=== PATIENT | male | born 1960 | race Caucasian/White ===

== ENCOUNTER 2017-04-14 15:23 | Emergency (ER) | payer OTHER ==
[~2017-04-14] VITALS: Ht 166.4 cm; Wt 80.8 kg
[2017-04-14 15:55] VITALS: BP 149/78
== END 2017-04-14 16:55 | disposition home or self-care (01) ==
LOC: ER 15:24
DX: J11.1 Influenza due to unidentified influenza virus with other respiratory manifestations (principal); Z88.6 Allergy status to analgesic agent
CPT/HCPCS: 71020; 99284

== ENCOUNTER 2023-05-28 09:40 | Emergency (ER) | payer OTHER ==
[~2023-05-28] VITALS: Ht 162.6 cm; Wt 87.1 kg
[2023-05-28 10:42] LABS: BASOPHILS % (AUTO) 0.6 % (0-1); EOSINOPHILS # (AUTO) 0.2 X10'3 (0-0.9); EOSINOPHILS % (AUTO) 3.4 % (0-6); HEMATOCRIT 46.8 % (42.0-52.0); HEMOGLOBIN 16.1 g/dl (14.0-17.9); LYMPHOCYTES # (AUTO) 1.7 X10'3 (1.1-4.8); MEAN CORPUSCULAR HEMOGLOBIN 29.9 PG (27.0-31.0); MEAN CORPUSCULAR HGB CONC 34.3 g/dL (33.0-36.5); MEAN PLATELET VOLUME 7.3 FL (7.4-10.4); MONOCYTES # (AUTO) 0.5 X10'3 (0-0.9); MONOCYTES % (AUTO) 11.3 % (2-12); NEUTROPHILS # (AUTO) 2.2 X10'3 (1.8-7.7); NEUTROPHILS % (AUTO) 48.7 % (42-75); PLATELET COUNT 314 X10'3 (140-440); RED BLOOD COUNT 5.38 X10'6 (4.70-6.10); RED CELL DISTRIBUTION WIDTH 12.8 % (11.5-14.5); WHITE BLOOD COUNT 4.6 X10'3 (4.5-11.0)
[2023-05-28 11:18] LABS: ALANINE AMINOTRANSFERASE 35 U/L (12-78); ALBUMIN/GLOBULIN RATIO 1.2 (1.1-1.5); ALKALINE PHOSPHATASE 78 IU/L (46-116); ANION GAP 9 (8-16); ASPARTATE AMINO TRANSFERASE 25 U/L (10-37); BILIRUBIN,TOTAL 0.4 MG/DL (0.1-1.0); BLOOD UREA NITROGEN 18 MG/DL (7-18); BUN/CREATININE RATIO 21.7 (10.0-20.0); CALCIUM 8.6 MG/DL (8.5-10.1); CHLORIDE 105 MMOL/L (99-107); CREATININE 0.83 MG/DL (0.60-1.10); GLUCOSE 113 MG/DL (70-104); POTASSIUM 3.9 MMOL/L (3.5-5.1); SODIUM 139 MMOL/L (135-145); TOTAL CARBON DIOXIDE 24.6 MMOL/L (24-32); TOTAL PROTEIN 7.4 G/DL (6.4-8.2); eCRCL 83 ML/MIN; eGFR > 90 ML/MIN
[2023-05-28 11:34] LABS: PRO BRAIN NATRIURETIC PEPTIDE 68 PG/ML (0-125)
[2023-05-28] MEDS ORDERED: FAMO-129 PO (14:17)
[2023-05-28] MEDS ORDERED: LISI1TAB49 PO (14:17)
[2023-05-28 15:07] VITALS: BP 151/89; PULSE 55; RESP 16; TEMP 98.4; O2SAT 98
== END 2023-05-28 15:19 | disposition home or self-care (01) ==
LOC: ER 09:40
DX: K22.2 Esophageal obstruction (principal); M19.90 Unspecified osteoarthritis, unspecified site; Z88.8 Allergy status to other drugs, medicaments and biological substances; Z79.899 Other long term (current) drug therapy
CPT/HCPCS: 36415; 71045; 80053; 83880; 84484; 85025; 93005; 99285

== ENCOUNTER 2024-08-30 10:37 | Inpatient (IN) | payer SELFPAY ==
[2024-08-30] VITALS (16 sets, daily range): BP systolic 125–177; BP diastolic 76–101; PULSE 63–95; RESP 10–18; O2SAT 94–98
[~2024-08-30] VITALS: Ht 165.1 cm; Wt 91.5 kg
[2024-08-30] MEDS: K and/or MAG REPLACEMENT MC SCH (08:00)
[~2024-08-30 10:37] MED LIST: FAMO-129 PO; LISI1TAB49 PO; heparin, porcine-25,000 units/D5-250ml premix IV ONE
[2024-08-30] MEDS ORDERED: LIDOcaine 1% (10mg/ml) 2ml vial ONE (10:39)
[2024-08-30] MEDS ORDERED: midazolam 1 mg/ML 2ml injection ONE (10:39)
[2024-08-30] MEDS ORDERED: heparin 1,000unit/ml 10ml vial 10 ML ONE (10:39)
[2024-08-30] MEDS ORDERED: verapamil 2.5 mg/ml inj IV ONE (10:39)
[2024-08-30] MEDS ORDERED: iohexol 350 MG/ML 50ML vial IV ONE (10:39)
[2024-08-30] MEDS ORDERED: fentaNYL/PF 50MCG/1 ML 2ML syringe ONE (10:39)
[2024-08-30] MEDS ORDERED: LIDOcaine 1% 30ml preserv. free vial ONE (10:39)
[2024-08-30] MEDS ORDERED: iohexol 350MG/ML 100ml bottle IV ONE ×2 (10:40→11:16)
[2024-08-30] MEDS ORDERED: nitroGLYCERIN 500mcg/5mL D5W 5 ML IV ONE (10:40)
--- NOTE | 2024-08-30 10:49 | Physician Documentation ---
History of Present Illness ~ Chief Complaint: Chest Pain Stated Complaint: NSTEMI Time Seen by MD: 10:49 Primary Medical Doctor: FALLON Source: patient, EMS HPI Patient presents with chest pain onset 30 minutes prior to arrival. Received aspirin and atropine prior to arrival Medication Reconciliation Allergies: Coded Allergies: naproxen (Verified Allergy, Intermediate, "violently sick", 04/14/17) Scheduled Famotidine (Pepcid), 1 TAB PO Q12H Lisinopril/Hydrochlorothiazide (Lisinopril-Hctz 10-12.5 mg Tab), 1 TAB PO DAILY Past Medical History Past Medical History: Arthritis, Chronic Pain, Chronic Back Pain Past Surgical History: noncontributory Alcohol Use: None Drug Use: none Lives In: Home Occupation: employed Review of Systems All Other Systems at this time: Reviewed and Negative Physical Exam Vital Signs: RN Vital Signs have been reviewed: Yes, Heart Rate: 40, Respiratory Rate: 16, Pulse Oximetry: 96, Weight: 91.500 Physical Exam Ill-appearing Cardiopulmonary clear to auscultation bilaterally\\\\ No murmurs Abdomen is soft nontender Progress Progress Note 11:15 a.m. discussed case with material control clerk who reports total RCA occlusion. He is requesting consultation with ICU 11:30 a.m. discussed case with jira developer Dr. Pantoja he agrees to accept for admission Results/Orders Results/Orders Orders - ERIKA ALONZO MD Chest,Single View (08/30/24 10:38) Monitor (08/30/24 10:38) Saline Lock (08/30/24 10:38) Oxygen (08/30/24 10:38) Electrocardiogram (08/30/24 10:38) Hs Troponin I W Calculations (08/30/24 12:38) Hs Troponin I W Calculations (08/30/24 13:38) Completed Orders - ERIKA ALONZO MD Chest,Single View (08/30/24 10:38) Cbc/Diff (08/30/24 10:38) PBNP (08/30/24 10:38) CMP (08/30/24 10:38) Hs Troponin I W Calculations (08/30/24 10:38) Fentanyl/Pf (Fentanyl 0.05 Mg/Ml Syringe (08/30/24 10:55) Iohexol 350mg/Ml 100ml (Omnipaque 350mg/ (08/30/24 11:16) Ticagrelor Tablet (Brilinta Tablet) (08/30/24 11:41) Medications Received in ER Medications (Trade) Dose Ordered Sig/Derrell Route PRN Reason Start Time Stop Time Status Last Admin Dose Admin (fentaNYL 0.05 MG/ML syringe) 75 mcg ONCE ONCE IV 08/30/24 10:55 08/30/24 10:56 DC 08/30/24 10:54 75 MCG Vital Signs 08/30/24 08/30/24 10:38 10:54 Pulse 40 Resp 16 18 Pulse Ox 96 Laboratory Tests Test 08/30/24 10:50 White Blood Count 7.2 Red Blood Count 5.17 Hemoglobin 14.9 Hematocrit 43.9 Mean Corpuscular Volume 84.8 Mean Corpuscular Hemoglobin 28.9 Mean Corpuscular Hemoglobin Concent 34.1 Red Cell Distribution Width 13.7 Platelet Count 274 Mean Platelet Volume 7.0 L Neutrophils (%) (Auto) 37.1 L Lymphocytes (%) (Auto) 46.5 Monocytes (%) (Auto) 10.9 Eosinophils (%) (Auto) 4.5 Basophils (%) (Auto) 1.0 Neutrophils # (Auto) 2.7 Lymphocytes # (Auto) 3.3 Monocytes # (Auto) 0.8 Eosinophils # (Auto) 0.3 Basophils # (Auto) 0.1 CBC Comment Sodium Level 142 Potassium Level 3.3 L Chloride Level 107 Carbon Dioxide Level 25.8 Anion Gap 9 Blood Urea Nitrogen 16 Creatinine 1.00 Estimated GFR/1.73 m2 75 BUN/Creatinine Ratio 16.0 Glucose Level 120 H Calcium Level 8.4 L Total Bilirubin 0.4 Aspartate Amino Transf (AST/SGOT) 27 Alanine Aminotransferase (ALT/SGPT) 47 Alkaline Phosphatase 77 Troponin I High Sensitivity 181 *H Pro-B-Type Natriuretic Peptide 33 Total Protein 6.0 L Albumin 3.4 Globulin 2.6 L Albumin/Globulin Ratio 1.3 Chemistry Comments EKG/XRAY/CT/US/VASC/MRI EKG : Additional Comment EKG independently interpreted by myself time 10:38 a.m. indication chest pain normal sinus rhythm rate 80 left bundle branch block lateral ST-elevation, Chest X-Ray : Additional Comments Chest x-ray independently interpreted by myself shows no pneumothorax no consolidation normal cardiomediastinal silhouette Heart Score: Heart Score Response (Comments) Value History Highly Suspicious [address]-Deviation 2 Age 45-64 1 Risk Factors 1 or 2 risk factors 1 Troponin 1-2 x's Normal limit 1 Total 7 Medical Decision Making Additional Information Acute coronary syndrome, aortic dissection, pulmonary embolism Departure Disposition: ADMITTED INPATIENT Admitted to Inpatient Unit: to jira developer Impression: Primary Impression: STEMI (ST elevation myocardial infarction) Qualified Codes: I21.11 - ST elevation (STEMI) myocardial infarction involving right coronary artery Referrals: NO PRIMARY CARE PROVIDER (PCP) Critical Care Note Total Time (mins): 30 Critical Care Note The very real possibility of a deterioration of this patient's condition required the highest level of my preparedness for sudden, emergent intervention. I provided critical care services, which included medication orders, frequent reevaluations of the patient's condition and response to treatment, ordering and reviewing test results, and discussing the case with various consultants. Excludes time spent performing separately billable procedures. The critical care time associated with the care of the patient was 30 minutes in the management of acute ST-elevation myocardial infarction Signature Scribe Signature: shalom Attestation: ERIKA Diop MD August 30, 2024 10:49
[2024-08-30] MEDS: fentaNYL/PF 50MCG/1 ML 2ML syringe ONE (10:53)
[2024-08-30] MEDS: fentaNYL/PF 50MCG/1 ML 2ML syringe IV ONE (10:54)
[2024-08-30 10:58] LABS: BASOPHILS # (AUTO) 0.1 X10'3 (0-0.2); EOSINOPHILS # (AUTO) 0.3 X10'3 (0-0.9); EOSINOPHILS % (AUTO) 4.5 % (0-6); HEMATOCRIT 43.9 % (42.0-52.0); HEMOGLOBIN 14.9 g/dl (14.0-17.9); LYMPHOCYTES # (AUTO) 3.3 X10'3 (1.1-4.8); LYMPHOCYTES % (AUTO) 46.5 % (21-51); MEAN CORPUSCULAR HEMOGLOBIN 28.9 PG (27.0-31.0); MEAN CORPUSCULAR HGB CONC 34.1 g/dL (33.0-36.5); MEAN CORPUSCULAR VOLUME 84.8 FL (78-98); MONOCYTES # (AUTO) 0.8 X10'3 (0-0.9); MONOCYTES % (AUTO) 10.9 % (2-12); NEUTROPHILS # (AUTO) 2.7 X10'3 (1.8-7.7); NEUTROPHILS % (AUTO) 37.1 % (42-75); PLATELET COUNT 274 X10'3 (140-440); RED BLOOD COUNT 5.17 X10'6 (4.70-6.10); RED CELL DISTRIBUTION WIDTH 13.7 % (11.5-14.5); WHITE BLOOD COUNT 7.2 X10'3 (4.5-11.0)
--- NOTE | 2024-08-30 11:07 | RADIOLOGY REPORT ---
DI CHEST,SINGLE VIEW, HISTORY: CP COMPARISON: DI CHEST,SINGLE VIEW on DOS: 05/28/23, CHEST,SINGLE VIEW on DOS: 10/02/18 DI CHEST,SINGLE VIEW on DOS: 05/28/23, CHEST,SINGLE VIEW on DOS: 10/02/18 TECHNICAL DATA: 1 view of the chest was obtained. FINDINGS: Lines and tubes: None Cardiomediastinal silhouette: normal Pulmonary vasculature: normal Lung expansion: normal Lung airspace: normal Lung interstitium: normal Pleura: normal Pneumothorax: no Bones: Unremarkable Other: no IMPRESSION: No acute intrathoracic abnormality.
[2024-08-30 11:21] LABS: ALANINE AMINOTRANSFERASE 47 U/L (12-78); ALBUMIN 3.4 G/DL (3.4-5.0); ALBUMIN/GLOBULIN RATIO 1.3 (1.1-1.5); ALKALINE PHOSPHATASE 77 IU/L (46-116); ANION GAP 9 (8-16); ASPARTATE AMINO TRANSFERASE 27 U/L (10-37); BILIRUBIN,TOTAL 0.4 MG/DL (0.1-1.0); BLOOD UREA NITROGEN 16 MG/DL (7-18); CALCIUM 8.4 MG/DL (8.5-10.1); CHLORIDE 107 MMOL/L (99-107); GLUCOSE 120 MG/DL (70-104); POTASSIUM 3.3 MMOL/L (3.5-5.1); PRO BRAIN NATRIURETIC PEPTIDE 33 PG/ML (0-125); SODIUM 142 MMOL/L (135-145); TOTAL CARBON DIOXIDE 25.8 MMOL/L (24-32); eCRCL 65 ML/MIN; eGFR 75 ML/MIN
[2024-08-30] MEDS ORDERED: ticagrelor 90mg tablet ONE (11:41)
--- NOTE | 2024-08-30 12:40 | HISTORY AND PHYSICAL ---
History of Present Illness End CC ~ Admission Diagnosis:.: STEMI History of Present Illness Presents to ER with CP and EKG changes consistent with STEMI. 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 - 30 Minutes Review of Systems All Other Systems at this time: Reviewed and Negative Physical Exam Last Vital Signs recorded: Heart Rate: 40, Respiratory Rate: 18, Pulse Oximetry: 96, Weight: 91.500 Physical Exam Comfortable General Appearance: no apparent distress EENT: PERRL/EOMI Neck: full range of motion, supple Respiratory: lungs clear Cardiovascular: regular rate, rhythm Peripheral Pulses: 1+ carotid (R), 1+ carotid (L), 1+ radial (R), 1+ radial (L), 1+ femoral (R), 1+ femoral (L), 1+ dorsalis pedis (R), 1+ dorsalis pedis (L), 1+ posterior tib (R), 1+ posterior tib (L), 1+ other Gastrointestinal: bowels sounds present Neurologic: oriented x4 Skin: warm/dry Results Diagram Lab Result Diagram: 08/30/24 1050 08/30/24 1050 Assessment/Plan 1-STEMI -S/P PCI/Stent RCA -Post-cardiac cath orders as per Cardiology 2-H/O HTN -Resume home kaiser Pantoja CC time 35min SONIA PANTOJA MD August 30, 2024 12:40
--- NOTE | 2024-08-30 12:57 | ELECTROCARDIOGRAPH REPORT ---
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 KAYLAH Holland Measurements Intervals [place] Rate: 77 P: 36 NC: 164 QRS: -5 QRSD: 94 T: 98 QT: 383 QTc: 434 Interpretive Statements Sinus rhythm Inferior infarct, acute (RCA) ST elevation, consider anterolateral injury Probable RV involvement, suggest recording right precordial leads Electronically Signed On 08-30-2024 15:06:[address] KAYLAH Holland Please click the below link to view image of tracing.
[2024-08-30] MEDS ORDERED: magnesium hydroxide 30ml (MOM) UD suspension PO PRN (13:10)
[2024-08-30] MEDS ORDERED: acetaminophen 325mg tablet PO PRN (13:15)
[2024-08-30] MEDS ORDERED: OXAZEpam 15mg capsule PO PRN (13:20)
[2024-08-30] MEDS ORDERED: HYDROcodone/acetaminophen 10/325mg tab PO PRN (13:20)
[2024-08-30 15:34] LABS: CHOL/HDL RATIO 5.1 (0.00-4.99); CHOLESTEROL 274 MG/DL (0-200); HDL CHOLESTEROL 54 MG/DL (35-60); LDL CHOLESTEROL 195 MG/DL (50-100); TRIGLYCERIDES 52 MG/DL (20-135)
[2024-08-30] MEDS: aspirin 81mg, enteric-coated 1 TAB TABLET.DR PO SCH (15:47)
[2024-08-30] MEDS: HYDROcodone/acetaminophen 10/325mg tab PO SCH (15:48)
[2024-08-30] MEDS: normal saline 1000ml 1,000 ML IV SCH (15:52)
[2024-08-30] MEDS ORDERED: magnesium sulf-water 4G/100mL 100 ML IV PRN (16:15)
[2024-08-30] MEDS ORDERED: magnesium sulf-water 2g/50mL 50 ML IV PRN (16:15)
[2024-08-30] MEDS ORDERED: potassium Cl 20 mEq SR tablet PO PRN (16:15)
[2024-08-30] MEDS: potassium Cl 20 mEq SR tablet PO PRN (17:13)
[2024-08-30] MEDS: ondansetron/PF 4mg/2ml inj ONE (19:06)
[2024-08-30] MEDS: ondansetron/PF 4mg/2ml inj IV ONE (19:38)
[2024-08-30] MEDS: docusate sod 100mg capsule PO SCH (20:10)
[2024-08-30] MEDS: ticagrelor 90mg tablet PO SCH (20:10)
[2024-08-30] MEDS: atorvastatin 20mg tablet PO SCH (20:10)
[2024-08-30] MEDS: cyclobenzaprine 10mg tablet PO PRN (20:10)
[2024-08-31] VITALS (10 sets, daily range): BP systolic 96–143; BP diastolic 57–93; PULSE 53–88; RESP 8–20; TEMP 97–98; O2SAT 93–98
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
--- NOTE | 2024-08-31 03:25 | CARDIOLOGY REPORT ---
DATE OF SERVICE: 08/30/2024 DICTATING PHYSICIAN: KAYLAH Holland MD CARDIAC CATHETERIZATION GENDER: Male. AGE: 64 years. HEIGHT: 165 cm. WEIGHT: 91.5 kg. BODY SURFACE AREA: 1.98 m2. PRIMARY PHYSICIAN: [facility]. PATIENT ADMITTING REPRESENTATIVE: KAYLAH Holland MD INDICATION: The patient is a 64-year-old obese male with hypertension, possible hyperlipidemia, and possible sleep apnea, presented with severe substernal chest discomfort starting at around 0930 hours this morning associated with shortness of breath, fatigue and he came to the Emergency Room and found to have inferolateral elevation. After discussing risks, benefits, and alternative options, the patient did undergo coronary angiography. Risks, benefits, and alternative options were discussed. Informed consent was obtained. The patient has been treated with aspirin, heparin, and nitrates. DESCRIPTION OF PROCEDURE: The patient underwent left heart catheterization from right femoral approach, 6-[place] right femoral arterial sheath. Post-procedure, sheath sutured to the groin. The patient tolerated the procedure well. COMPLICATIONS: None. PROCEDURES DONE: * Ultrasound-guided right femoral artery visualization and access. * Right femoral artery arteriography. * Left heart catheterization. * LVG. * Coronary cineangiography. * PTCA stenting of the distal RCA. * Conscious sedation time of 45 minutes. FINDINGS: HEMODYNAMICS: Aortic systolic 137, diastolic 85, mean 136 mmHg. LVEDP of 26 mmHg. There is no significant gradient across the aortic valve. LEFT VENTRICULOGRAM: Overall LVEF is about 50%-55% with severe inferoapical hypokinesia. CORONARY CINEANGIOGRAPHY: Left main coronary artery is a large-caliber vessel arising from the left aortic sinus engaged with JL4 catheter from right radial approach. LAD is a medium-caliber vessel arising at the bifurcation of left main coronary artery, courses through the anterior intraventricular groove, and ends before the apex. Distal one-third of the LAD is very small. The patient gives rise to diagonal 1, which is 2.5 mm caliber, going to NAYAK with luminal irregularities. Diagonal is a 2.5 mm caliber vessel with mild luminal irregularities. Diagonal 2 is a 2 mm caliber vessel with mild luminal irregularities. Circumflex artery is a medium-caliber vessel arising from the bifurcation of the left main, courses through the left AV groove. It gives rise to a principal obtuse marginal branch, which has about 30% narrowing. OM2 is very small. Right coronary artery is a large-caliber dominant vessel arising at right aortic sinus, 100% occluded in the distal portion. PTCA STENTING OF THE RCA: After adequate heparinization, PTCA stenting was carried out. A 6-[place] extra backup RCA gave good support. Lesion crossed with a PT2 moderate wire. Lesion angioplastied with a 2.75 x 12 mm balloon at 8 followed by 10 followed by 12 atmospheric pressure. Post-procedure, the lesion was stented with 3.4/80 Resolute Allan stent, dilated to 12, followed by 14 atmospheric pressure. Post procedure 0% residue with a MARTHA-3 flow. The patient tolerated the procedure with no complication. IMPRESSION: A 64-year-old male with: * LV ejection fraction of 50%-55%, inferoapical akinesia. * LVEDP of 26 mmHg. No gradient across the aortic valve. Left main normal. LAD with 20% narrowing. * OM with 30% narrowing. * Dominant RCA 100% occluded distally, which was successfully angioplastied and stented with 4/18 Resolute Allan stent with 0%, MARTHA-3 flow. The patient tolerated the procedure with no complication. RECOMMENDATIONS: Recommend diet, weight loss, exercise program. Uninterrupted aspirin and Brilinta at least for one year. Continue beta blockers and statins and KAHLIL inhibitors. The patient also is recommended to have a sleep apnea evaluation. KAYLAH Holland MD TID: [id number] RECEIPT: [id number] ELVI/LORIE/TIA cc: [facility]
[2024-08-31 03:42] LABS: BASOPHILS % (AUTO) 0.4 % (0-1); EOSINOPHILS # (AUTO) 0.1 X10'3 (0-0.9); EOSINOPHILS % (AUTO) 0.9 % (0-6); HEMATOCRIT 43.7 % (42.0-52.0); HEMOGLOBIN 14.7 g/dl (14.0-17.9); LYMPHOCYTES # (AUTO) 2.2 X10'3 (1.1-4.8); LYMPHOCYTES % (AUTO) 19.4 % (21-51); MEAN CORPUSCULAR HEMOGLOBIN 28.7 PG (27.0-31.0); MEAN CORPUSCULAR HGB CONC 33.7 g/dL (33.0-36.5); MEAN CORPUSCULAR VOLUME 85.3 FL (78-98); MEAN PLATELET VOLUME 7.2 FL (7.4-10.4); MONOCYTES # (AUTO) 1.1 X10'3 (0-0.9); MONOCYTES % (AUTO) 9.2 % (2-12); NEUTROPHILS % (AUTO) 70.1 % (42-75); PLATELET COUNT 272 X10'3 (140-440); RED BLOOD COUNT 5.12 X10'6 (4.70-6.10); RED CELL DISTRIBUTION WIDTH 13.4 % (11.5-14.5); WHITE BLOOD COUNT 11.4 X10'3 (4.5-11.0)
[2024-08-31 04:04] LABS: ALBUMIN 3.3 G/DL (3.4-5.0); ANION GAP 5 (8-16); BLOOD UREA NITROGEN 12 MG/DL (7-18); BUN/CREATININE RATIO 15.2 (10.0-20.0); CALCIUM 8.6 MG/DL (8.5-10.1); CHLORIDE 107 MMOL/L (99-107); CREATININE 0.79 MG/DL (0.60-1.10); GLUCOSE 109 MG/DL (70-104); POTASSIUM 4.2 MMOL/L (3.5-5.1); PRO BRAIN NATRIURETIC PEPTIDE 1137 PG/ML (0-125); SODIUM 140 MMOL/L (135-145); eCRCL 82 ML/MIN; eGFR > 90 ML/MIN
--- NOTE | 2024-08-31 04:46 | ELECTROCARDIOGRAPH REPORT ---
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 KAYLAH Holland Measurements Intervals [place] Rate: 53 P: 30 CT: 138 QRS: -27 QRSD: 93 T: -72 QT: 477 QTc: 448 Interpretive Statements Sinus rhythm Inferior infarct, recent Lateral leads are also involved Electronically Signed On 08-31-2024 16:15:[address] KAYLAH Holland Please click the below link to view image of tracing.
[2024-08-31] MEDS: metoprolol succinate 25mg (24-HOUR) SR. Tablet PO SCH (08:00)
[2024-08-31] MEDS: pantoprazole 40mg Tablet.DR PO SCH (09:00)
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
--- NOTE | 2024-08-31 15:50 | PROGRESS NOTE ---
Progress Note Cardiology Providers to CC ~ Subjective Subjective Patient seen and examined this afternoon. Overall patient is doing well. No chest pain or shortness of breath. Right groin no hematoma or bruit. Equal pedal pulses. Objective Result Diagram: 08/31/24 0333 08/31/24 0333 Objective General: Normal body habitus, no acute distress, HEENT: Sclerae clear, PERRL, gums without lesions or bleeding, oropharynx clear without erythema or exudate. Neck: Supple without enlargement of the thyroid, or lymphadenopathy, Chest: Normal size and shape, no tenderness, nonlabored breathing, Breath sounds clear to auscultation. Heart: Regular in rate and rhythm, S1 and S2 normal, no S3-S4 or murmurs. Abdomen: Soft, nontender, no organomegaly, bowel sounds present. Extremities: No edema cyanosis or clubbing. Coagulation Studies Laboratory Tests Test 08/30/24 16:34 Activated Clotting Time 158 SEC (101-148) H Problem\Assessment\Plan Additional Plan 1. 64-year-old male presented with STEMI inferior wall: * LV ejection fraction of 50%-55%, inferoapical akinesia. * LVEDP of 26 mmHg. No gradient across the aortic valve. Left main normal. LAD with 20% narrowing. * OM with 30% narrowing. * Dominant RCA 100% occluded distally, which was successfully angioplastied and stented with 4/18 Resolute [place] stent with 0%, MARTHA-3 flow. Patient educated about uninterrupted aspirin and Brilinta at least for one year. 2. Hypertension: Patient started on beta josefina and ARB as part of core measures as well. 3. hyperlipidemia: Patient on statin. 4. Suspected obstructive sleep apnea: Recommend sleep study ALEJANDRO CALLES MD August 31, 2024 15:50
--- NOTE | 2024-08-31 16:06 | CARDIOLOGY REPORT ---
APPROVED REPORT EXAM: Comprehensive 2D, Doppler, and color-flow Echocardiogram. Patient Location: 2009 Blood Pressure: 164/90 mmHg Heart Rate: 82 bpm Rhythm: Sinus Rhythm Indications LV Function S/P PCI/Stent (RCA) STEMI Hx of Hypertension Electrical Assemblies Supervisor: MD Emily (CATH procedure) Previous echo: None 2D Dimensions RVDd 3.6 cm LA Diam4.3 cm RA Minor4.2 cmLVOT Diameter 2.06 (1.8-2.4cm) IVC 17.80 mmCO 6.6 L/min M-Mode Dimensions RVDd 3.52 (2.1-3.2cm) Left Atrium(MM) 4.13 (2.5-4.0cm) IVSd 1.15 (0.7-1.1cm) LVDd 6.05 (4.0-5.6cm) Aortic Root 3.35 (2.2-3.7cm) PWd 1.24 (0.7-1.1cm) Aortic Cusp Exc 1.96 (1.5-2.0cm) IVSs 1.65 cm MV EPSS 2.1 (<0.5cm) LVDs 4.69 (2.0-3.8cm) FS (%) 24 % PWs 1.61 cm ESV(Teich) 89.0 ml LVEF(%) 47 (>50%) Aortic Valve AoV Peak Be. 117.6 cm/s AoV VTI 21.4 cm AO Peak GR. 5.5 mmHg AO Mean GR. 3 mmHg LVOT VTI 17.76 cm LVOT Peak Be. 92.9 cm/s BUFFY(VTI)/BSA 2.77 cm2/m2 BUFFY (VTI) 2.77 cm2 Mitral Valve MV E Velocity 52.8 cm/s MV Peak Gr. 2 mmHg MV DECEL TIME 176 ms MV A Velocity 74.7 cm/s MV PHT 48 ms E/A Ratio 0.7 MVA (PHT) 4.58 cm2 MV VMax63.1 cm/s TDI Lateral E' P. V6.86 cm/s Medial E' P. V 5.94 cm/s E/Lateral E' 7.7 E/Medial E' 8.9 Pulmonary Valve RVOT VTI 18.0 cm Tricuspid Valve TR P. Velocity 205 cm/s RAP ESTIMATE 10 mmHg TR Peak Gr. 17 mmHg RVSP 27 mmHg LEFT VENTRICLE Normal LV size with mildly reduced function. Basal inferoseptum, basal and mid inferior segments appe ar hypokinetic. Mild concentric hypertrophy. OVERALL LVEF IS ABOUT 50%. RIGHT VENTRICLE Right ventricle is mild to moderately dilated with mildly reduced function. Estimated PA systolic pre ssure is 27 mmHg. ATRIA Left atrium is mildly dilated. Right atrium is mildly dilated. AORTIC VALVE Trileaflet AV appears sclerotic without stenosis or insufficiency. MITRAL VALVE Mild MV annular calcification without stenosis. Trace regurgitation. TRICUSPID VALVE TV appears structurally normal with trace regurgitation. PULMONIC VALVE Normal PV without stenosis, physiologic insufficiency. GREAT VESSELS The aortic root is normal in size. IVC is normal in size and collapses less than 50% with inspiration . PERICARDIUM Normal pericardium. No pericardial effusion seen. Other Information Study Quality: Fair Conclusion Normal LV size with mildly reduced function. Basal inferoseptum, basal and mid inferior segments appe ar hypokinetic. Mild concentric hypertrophy. Right ventricle is mild to moderately dilated with mildly reduced function. Estimated PA systolic pre ssure is 27 mmHg. Trileaflet AV appears sclerotic without stenosis or insufficiency. Mild MV annular calcification without stenosis. Trace regurgitation. TV appears structurally normal with trace regurgitation. Normal PV without stenosis, physiologic insufficiency. Normal pericardium. No pericardial effusion seen.
[2024-09-01 02:00] VITALS: BP 108/63; PULSE 71; RESP 16; TEMP 97.9; O2SAT 98
[2024-09-01 07:00] VITALS: BP 98/61; PULSE 71; RESP 16; TEMP 97.8; O2SAT 97
[2024-09-01 08:00] VITALS: RESP 16; O2SAT 98
[2024-09-01] MEDS ORDERED: TICA90TA PO (08:14)
[2024-09-01] MEDS ORDERED: METO-395 PO (08:14)
[2024-09-01] MEDS ORDERED: ASPI-1071 PO (08:14)
[2024-09-01] MEDS ORDERED: ATOR20TA66 PO (08:14)
--- NOTE | 2024-09-01 17:41 | DISCHARGE SUMMARY ---
Discharge Summary Providers to CC ~ Discharge Summary Admission Diagnosis: STEMI Hospital Course DATE OF ADMISSION: August 30, 2024 DATE OF DISCHARGE: Sep 01 2024 Discharge Diagnosis\Comment: Acute STEMI status post cardiac catheterization showing complete RCA occlusion s tatus post angioplasty and stent placement by Dr. Toby Padgett Dyslipidemia GERD Operations\Procedures: Cardiac catheterization Consultants: Dr. Toby Padgett Complications: None Condition on DC: Stable Discharge Summary: This is a 64 years old male who presents to the hospital with chest pain new onset; is found to have an EKG showing STEMI inpatient went to cardiac catheterization with Dr. Toby Padgett; patient was found to have a completely occluded RCA and had angioplasty with stent placement; postprocedure his condition remained stable and there were no complications; echocardiogram showed an EF about 40% with basal inferoseptal and basal and mid inferior segments hypokinetic; postprocedure patient was started on medical management with aspirin Brilinta beta-josefina and Lipitor; his condition remained stable he is chest pain free and denies any shortness of breaths so today patient in stable condition is discharged home; patient is to follow up with his primary care physician within a week Patient received on discharge prescription for aspirin 81 mg p.o. daily Lipitor 80 mg p.o. daily Toprol succinate 25 mg p.o. daily Brilinta 90 mg p.o. b.i.d.; patient to continue his Pepcid 20 mg p.o. b.i.d. No New blood work on the day of discharge In the physical examination temperature 97.9 heart rate 70 breathing 16 blood pressure 1/863 98% on room air HEENT normal oral mucosa no JVD lungs with normal bilateral entry no crackles no wheezing heart normal rate and rhythm S1-S2 no murmurs abdomen is soft obese nontender bowel sounds present extremities no edema plus two pulses he is awake and alert *Problems/Diagnosis: (1) STEMI (ST elevation myocardial infarction) Status: Acute Total Time Spent on D/C: > 30 Minutes Date of Service: September 01, 2024 Billing Provider: JONATHAN MIRELES MD Common Visit Codes: 48969-EKQ/OBS DISCH DAY >30min Problem Qualifiers (1) STEMI (ST elevation myocardial infarction): Qualified Codes: I21.11 - ST elevation (STEMI) myocardial infarction involving right coronary artery JONATHAN MIRELES MD September 01, 2024 17:39
== END 2024-09-01 12:02 | disposition home or self-care (01) | DRG 322 ==
LOC: ER 10:37 → CICU 2S 12:23 → PCU 3S 08-31 01:39
PROVIDERS: ADMIT Internal Medicine Critical Care Medicine; ATTEND Internal Medicine Critical Care Medicine
PROC: 0270346 Dilation of Coronary Artery, One Artery, Bifurcation, with Drug-eluting Intraluminal Device, Percutaneous Approach (ICD-10-PCS; principal; 2024-08-30)
PROC: 4A023N7 Measurement of Cardiac Sampling and Pressure, Left Heart, Percutaneous Approach (ICD-10-PCS; 2024-08-30)
PROC: B2111ZZ Fluoroscopy of Multiple Coronary Arteries using Low Osmolar Contrast (ICD-10-PCS; 2024-08-30)
PROC: B41F1ZZ Fluoroscopy of Right Lower Extremity Arteries using Low Osmolar Contrast (ICD-10-PCS; 2024-08-30)
DX: I21.11 ST elevation (STEMI) myocardial infarction involving right coronary artery (principal); E66.01 Morbid (severe) obesity due to excess calories; G47.33 Obstructive sleep apnea (adult) (pediatric); E78.5 Hyperlipidemia, unspecified; I10 Essential (primary) hypertension; G89.29 Other chronic pain; K21.9 Gastro-esophageal reflux disease without esophagitis; I25.10 Atherosclerotic heart disease of native coronary artery without angina pectoris; Z95.5 Presence of coronary angioplasty implant and graft; Z88.8 Allergy status to other drugs, medicaments and biological substances; Z79.899 Other long term (current) drug therapy; Z68.33 Body mass index [BMI] 33.0-33.9, adult
CPT/HCPCS: 93306; 93458; 96374; 99291; C9606; 36415; 71045; 76937; 80048; 80053; 80061; 83880; 84484; 85025; 85347; 87081; 93005; 99152; 99153; A6258; A6455; C1725; C1751; C1769; C1874; G0378; J1644; J2003; J2250; J2405; J3010; J3490; J7030; Q9967